=== PATIENT | male | born 1990 | race Caucasian/White ===

== ENCOUNTER 2020-09-12 00:10 | Emergency (ER) | payer OTHER ==
[~2020-09-12] VITALS: Ht 167.6 cm; Wt 86.2 kg
[2020-09-12 00:10] VITALS: BP 135/107
--- NOTE | 2020-09-12 00:10 | NUR ---
FRANCOIS FARMER, PREBOOK. TAKEN TO CHAIR C
--- NOTE | 2020-09-12 00:53 | NUR ---
SEEN AND EXAMINED BY [facility]
[2020-09-12 01:24] VITALS: BP 135/107
--- NOTE | 2020-09-12 01:24 | NUR ---
Patient discharged with v/s stable. Written and verbal after care instructions given and explained. Patient verbalized understanding. Police with in custody. All questions addressed prior to discharge. Advised to follow up with PMD.
== END 2020-09-12 01:25 ==
LOC: MED 00:10
DX: R11.2 Nausea with vomiting, unspecified (principal); Z02.89 Encounter for other administrative examinations
CPT/HCPCS: 99283